=== PATIENT | female | born 1960 | race Caucasian/White ===

== ENCOUNTER 2019-03-19 16:43 | Emergency (ER) | payer BC ==
[2019-03-19] MEDS ORDERED: Prochlorperazine 10 MG/2 ML SDV IVPUSH ONE (17:41)
[2019-03-19] MEDS ORDERED: Lactated Ringers 1,000 ML IV ONE (17:41)
--- NOTE | 2019-03-19 17:47 | EDM.PDOC ---
<OfficerBowen - Last Filed: 03/19/19 17:42> ED HPI GENERAL MEDICAL PROBLEM - General Chief Complaint: General Stated Complaint: MEDICAL VIA [facility] Time Seen by Provider: 03/19/19 17:26 Source of Information: Reports: Patient, Family, RN Notes Reviewed History Limitations: Reports: No Limitations - History of Present Illness INITIAL COMMENTS - FREE TEXT/NARRATIVE: 59-year-old female presents emergency department today via EMS services for sudden onset of dizziness with nausea then acute headache. She does have a history of [place] type a aneurysm which was repaired also has history of migraines as well as dizziness intermittently. She states she is never had it this severe like this episode. No shortness of breath or chest pain no fevers describes no neurologic deficit she does have a no history of paresthesias in the right foot as well as some strabismus in the left eye with difficulty with lateral movements Headache Pain Score (Numeric/FACES): 3 - Related Data Allergies Allergy/AdvReac Type Severity Reaction Status Date / Time prednisone Allergy Vomiting Verified 03/19/19 17:16 Sulfa (Sulfonamide Allergy Vomiting Verified 03/19/19 17:01 Antibiotics) Home Meds: Home Meds Acetaminophen [Masophen] 2 tab PO DAILY 03/19/19 [History] Aspirin 325 mg PO DAILY 03/19/19 [History] FLUoxetine HCl [Prozac] 20 mg PO BID 03/19/19 [History] Lisinopril [Zestril] 10 mg PO DAILY 03/19/19 [History] Metoprolol Tartrate 50 mg PO BID 03/19/19 [History] atorvaSTATin [Lipitor] 40 mg PO BEDTIME 03/19/19 [History] Past Medical History HEENT History: Reports: Impaired Vision, Other (See Below) Other HEENT History: strabismus, presbiopia. Cardiovascular History: Reports: Aneurysm Respiratory History: Reports: Sleep Apnea Gastrointestinal History: Reports: Irritable Bowel Syndrome Genitourinary History: Reports: Chronic Renal Insuffiency, Other (See Below) Other Genitourinary History: stage 3 kidney failure [employer] History: Reports: , Spontaneous Neurological History: Reports: CVA, Migraines, Other (See Below) Other Neuro History: aphasia and hemiparesis Psychiatric History: Reports: Depression Hematologic History: Reports: Blood Transfusion(s), Other (See Below) Other Hematologic History: antibody issues with blood transfusion - Past Surgical History HEENT Surgical History: Reports: Eye Surgery, Tonsillectomy Cardiovascular Surgical History: Reports: Coronary Artery Stent, Other (See Below) Other Cardiovascular Surgeries/Procedures: 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 GI Surgical History: Reports: Colonoscopy, Other (See Below) Other GI Surgeries/Procedures: hemorrhoidectomy Female Surgical History: Reports: Other (See Below) Other Female Surgeries/Procedures: partial hysterectomy Social & Family History - Tobacco Use Smoking Status *Q: Former Smoker Used Tobacco, but Quit: Yes Month/Year Tobacco Last Used: 2016 - Caffeine Use Caffeine Use: Reports: Coffee Other Caffeine Use: 3 cups per day. - Recreational Drug Use Recreational Drug Use: No ED ROS GENERAL - Review of Systems Review Of Systems: See Below Constitutional: Reports: No Symptoms HEENT: Reports: Vertigo, Vision Change (Photophobia) Respiratory: Reports: No Symptoms Cardiovascular: Reports: No Symptoms GI/Abdominal: Reports: Nausea, Vomiting : Reports: No Symptoms Musculoskeletal: Reports: No Symptoms Skin: Reports: No Symptoms Neurological: Reports: Dizziness, Headache, Numbness (Right foot not new) ED EXAM, GENERAL - Physical Exam Exam: See Below Free Text/Narrative:: General: Female, ill-appearing but not in any distress, alert and oriented x3 HEENT: head is atraumatic normocephalic, eyes pupils equal round reactive to light, sclera clear no conjunctivitis appreciated extraocular eye movements are intact however the left eye cannot move the lateral rectus when both eyes are open, she has full range of motion when the right eye is closed. Nose no septal deviation, nares are clear, no blood present. Mouth mucosa is moist and pink no erythema or exudate noted in soft palate, tongue is midline uvula is midline, dentition is intact. Neck: Supple no thyromegaly no tracheal deviation. Nodes: Cervical nodes subclavicular nodes nontender no palpable lymphadenopathy noted. Head impulse test: Negative loss of fixation with corrective saccades when head turned to the bilateral Nystagmus: unidirectional, horizontal 0-beating nystagmus Skew deviation: grossly absent Lungs: clear to auscultation bilaterally with symmetrical respirations, no adventitious noise appreciated. CV: Regular rate and rhythm S1 and S2 appreciated no murmurs rubs or gallops noted. Abdomen: Soft, nontender, no palpable masses or organomegaly appreciated, no distention no guarding bowel sounds are present, [scars ]. Neuro: Cranial nerves II test with pupillary light reflex 4 mm to 2 mm bilaterally, CN III test pupillary constriction, lid elevation and eye abduction bilaterally, CN IV downward movement of eyes bilaterally, CN V good jaw movement, CN lateral deviation of the eyes bilaterally to finger movement , CN VII symmetrical smile shows teeth without difficulty, CN VIII pass finger rub to ears bilaterally, CN IX adequate voice and tone, CN X adequate voice and tone no difficulty swallowing, CN XI can shrug shoulders without difficulty, CN XII can stick tongue out without difficulty, cranial nerves II to XII intact as tested, Skin: Warm and dry, intact Extremities: No lower extremity edema appreciated, Course - Vital Signs Last Recorded V/S: Last Vital Signs Temp 35.4 C 03/19/19 16:58 Pulse 58 L 03/19/19 18:12 Resp 16 03/19/19 18:12 BP 116/65 03/19/19 18:12 Pulse Ox 97 03/19/19 18:12 - Orders/Labs/Meds Labs: Laboratory Tests 03/19/19 03/19/19 Range/Units 18:14 18:14 WBC 9.1 (4.5-11.0) K/uL RBC 4.48 (3.30-5.50) M/uL Hgb 12.7 (12.0-15.0) g/dL Hct 38.4 (36.0-48.0) % MCV 86 (80-98) fL MCH 28 (27-31) pg MCHC 33 (32-36) % Plt Count 252 (150-400) K/uL Neut % (Auto) 76 H (36-66) % Lymph % (Auto) 16 L (24-44) % Daniels % (Auto) 6 (2-6) % Eos % (Auto) 1 L (2-4) % Baso % (Auto) 0 (0-1) % Sodium 136 L (140-148) mmol/L Potassium 4.0 (3.6-5.2) mmol/L Chloride 99 L (100-108) mmol/L Carbon Dioxide 27 (21-32) mmol/L Anion Gap 14.0 (5.0-14.0) mmol/L BUN 27 H (7-18) mg/dL Creatinine 1.1 H (0.6-1.0) mg/dL Est Cr Clr Drug Dosing 50.16 mL/min Estimated GFR (MDRD) 51 L (>60) Glucose 96 (74-106) mg/dL Calcium 9.2 (8.5-10.1) mg/dL Total Bilirubin 0.5 (0.2-1.0) mg/dL AST 16 (15-37) U/L ALT 26 (12-78) U/L Alkaline Phosphatase 72 (46-116) U/L Total Protein 7.5 (6.4-8.2) g/dL Albumin 4.0 (3.4-5.0) g/dL Globulin 3.5 (2.3-3.5) g/dL Albumin/Globulin Ratio 1.1 L (1.2-2.2) Meds: Medications Discontinued Medications Generic Name Dose Route Start Last Admin Trade Name Freq PRN Reason Stop Dose Admin Lactated Ringer's 1,000 mls @ 999 mls/hr 03/19/19 17:41 03/19/19 18:19 Ringers, Lactated IV 03/19/19 18:41 999 mls/hr BOLUS ONE Administration Prochlorperazine Edisylate 5 mg 03/19/19 17:41 03/19/19 18:18 Compazine IVPUSH 03/19/19 17:42 5 mg ONETIME ONE Administration Departure - Departure Disposition: Home, Self-Care 01 Clinical Impression: Headache Qualifiers: Headache type: unspecified Headache chronicity pattern: acute headache Intractability: not intractable Qualified Code(s): R51 - Headache - Discharge Information Referrals: PCP,None [Primary Care Provider] - Forms: ED Department Discharge Additional Instructions: Continue your regular medications. Drink enough fluids so that your urine is light yellow in color. Recheck as needed. Sepsis Event Note - Evaluation Sepsis Screening Result: No Definite Risk - Focused Exam Vital Signs: Vital Signs Temp Pulse Resp BP Pulse Ox 03/19/19 18:12 58 L 16 116/65 97 03/19/19 17:19 57 L 116/67 94 L 03/19/19 16:58 35.4 C 60 16 116/67 100 Date Exam was Performed: 01/10/20 Time Exam was Performed: 17:42 <Charles Brock - Last Filed: 03/19/19 19:18> Course - Vital Signs Text/Narrative:: Feels much better after fluids IV and Compazine 5 mg IV. Ready for discharge. - Orders/Labs/Meds Labs: Laboratory Tests 03/19/19 03/19/19 Range/Units 18:14 18:14 WBC 9.1 (4.5-11.0) K/uL RBC 4.48 (3.30-5.50) M/uL Hgb 12.7 (12.0-15.0) g/dL Hct 38.4 (36.0-48.0) % MCV 86 (80-98) fL MCH 28 (27-31) pg MCHC 33 (32-36) % Plt Count 252 (150-400) K/uL Neut % (Auto) 76 H (36-66) % Lymph % (Auto) 16 L (24-44) % Daniels % (Auto) 6 (2-6) % Eos % (Auto) 1 L (2-4) % Baso % (Auto) 0 (0-1) % Sodium 136 L (140-148) mmol/L Potassium 4.0 (3.6-5.2) mmol/L Chloride 99 L (100-108) mmol/L Carbon Dioxide 27 (21-32) mmol/L Anion Gap 14.0 (5.0-14.0) mmol/L BUN 27 H (7-18) mg/dL Creatinine 1.1 H (0.6-1.0) mg/dL Est Cr Clr Drug Dosing 50.16 mL/min Estimated GFR (MDRD) 51 L (>60) Glucose 96 (74-106) mg/dL Calcium 9.2 (8.5-10.1) mg/dL Total Bilirubin 0.5 (0.2-1.0) mg/dL AST 16 (15-37) U/L ALT 26 (12-78) U/L Alkaline Phosphatase 72 (46-116) U/L Total Protein 7.5 (6.4-8.2) g/dL Albumin 4.0 (3.4-5.0) g/dL Globulin 3.5 (2.3-3.5) g/dL Albumin/Globulin Ratio 1.1 L (1.2-2.2) - Radiology Interpretation Free Text/Narrative:: head CT without contrast- IMPRESSION: Unremarkable noncontrast head CT. Dictated by Heriberto Loredo MD @ 03/19/2019 6:11:52 PM Please note that all CT scans at this facility use dose modulation, iterative reconstruction, and/or weight-based dosing when appropriate to reduce radiation dose to as low as reasonably achievable. Dictated by: Heriberto Loredo MD @ 03/19/2019 18:11:55 CT Results Date: 03/19/19 CT Results Time: 18:15 Departure - Departure Time of Disposition: 19:17 Condition: Good - Discharge Information *PRESCRIPTION DRUG MONITORING PROGRAM REVIEWED*: No *COPY OF PRESCRIPTION DRUG MONITORING REPORT IN PATIENT MAIA: No Sepsis Event Note - Focused Exam Date Exam was Performed: 03/19/19 Time Exam was Performed: 19:16
--- NOTE | 2019-03-19 18:13 | CRLCT ---
INDICATION: Headache, nausea, vomiting and dizziness TECHNIQUE: CT head without contrast. COMPARISON: None FINDINGS: CSF spaces: Within normal limits for age. Brain parenchyma: The kaplan-white differentiation is normal. No sign of mass, hemorrhage, or midline shift. Skull base and calvarium: The visualized paranasal sinuses and mastoid air cells demonstrate no acute or significant findings. The visualized orbits are grossly unremarkable. No skull fractures. IMPRESSION: Unremarkable noncontrast head CT. Dictated by Heriberto Loredo MD @ 03/19/2019 6:11:52 PM Please note that all CT scans at this facility use dose modulation, iterative reconstruction, and/or weight-based dosing when appropriate to reduce radiation dose to as low as reasonably achievable. Dictated by: Heriberto Loredo MD @ 03/19/2019 18:11:55 (Electronically Signed)
== END 2019-03-19 19:37 | disposition home or self-care (01) ==
LOC: JP.ED 16:43
DX: R51 Headache (principal); N18.3 Chronic kidney disease, stage 3 (moderate); Z88.8 Allergy status to other drugs, medicaments and biological substances; Z88.2 Allergy status to sulfonamides; Z79.82 Long term (current) use of aspirin; Z79.899 Other long term (current) drug therapy; Z87.891 Personal history of nicotine dependence; Z86.73 Personal history of transient ischemic attack (TIA), and cerebral infarction without residual deficits
CPT/HCPCS: 36415; 70450; 80053; 85025; 96361; 96374; 99284; J0780; J7120